=== PATIENT | female | born 1970 | race African-American/Black ===

== ENCOUNTER 2021-09-11 18:18 | Inpatient (IN) | payer MEDICAID, OTHER ==
[~2021-09-11] VITALS: Ht 157.5 cm; Wt 74.4 kg
[2021-09-11] MEDS ORDERED: FAMOTIDINE 20MG/2ML VIAL IV STA (18:34)
[2021-09-11] MEDS ORDERED: KETOROLAC 30MG/ML VIAL IV STA (18:34)
[2021-09-11] MEDS ORDERED: ONDANSETRON HCL 4MG/2ML INJ IV STA (18:34)
[2021-09-11] MEDS ORDERED: SODIUM CHLORIDE 0.9% 1,000 ML IV ONE (18:45)
[2021-09-11 19:04] LABS: BASOPHILS % 1.2 % (0.0-2.0); EOSINOPHILS % 1.2 % (0.0-5.0); LYMPHOCYTES % 19.4 % (20.0-50.0); MEAN CORPUSCULAR HEMOGLOBIN 26.8 pg (28.0-32.0); MEAN CORPUSCULAR VOLUME 83.5 fL (81.0-99.0); MEAN PLATELET VOLUME 8.6 fl (7.4-10.4); MONOCYTES % 8.2 % (2.0-8.0); PLATELET 323 x1000/uL (130-400); RED BLOOD CELL COUNT 1.86 mill/uL (4.2-5.4); RED CELL DISTRIBUTION WIDTH 17.2 % (11.6-14.6)
[2021-09-11 19:11] LABS: CHLORIDE 108 mEq/L (98-107); HEMATOCRIT. 15.5 % (36.0-48.0)
[2021-09-11 19:14] LABS: ETHANOL BLOOD < 10 mg/dL
[2021-09-11 19:33] LABS: INR 1.1; PROTHROMBIN TIME 11.8 sec (9.6-11.0)
[2021-09-11] MEDS ORDERED: CALCIUM CHLORIDE 1GM/10ML SYR IV ONE (20:00)
[2021-09-11] MEDS ORDERED: INSULIN REGULAR (HUMULIN R) 300UNITS/3ML VIAL IV ONE (20:00)
[2021-09-11] MEDS ORDERED: ALBUTEROL (0.083%) 2.5MG/3ML NEB HHN ONE (20:00)
[2021-09-11] MEDS ORDERED: SODIUM POLYSTYRENE SULFONATE 15 G/60 ML BOT PO ONE (20:00)
[2021-09-11] MEDS ORDERED: SODIUM BICARBONATE 8.4% 1 MEQ/ML 50ML SYR IV ONE (20:00)
[2021-09-11] MEDS ORDERED: DEXTROSE 50% WATER 50ML SYRINGE IV ONE (20:00)
[2021-09-11] MEDS ORDERED: FUROSEMIDE 100MG/10ML VIAL IV STA (20:00)
[2021-09-11] MEDS: CLONIDINE 0.2MG TABLET PO PRN (22:24)
[2021-09-12 04:43] LABS: CLARITY URINE TURBID (CLEAR); COLOR URINE YELLOW (YELLOW); KETONES URINE TRACE (NEGATIVE); LEUKOCYTE ESTERASE URINE TRACE (NEGATIVE); NITRITE URINE NEGATIVE (NEGATIVE); OCCULT BLOOD URINE 2+ (NEGATIVE); PROTEIN URINE 3+ (NEGATIVE); SPECIFIC GRAVITY URINE 1.019 (1.005-1.030); UROBILINOGEN URINE 0.2 E.U./dL (0.2-1.0)
[2021-09-12 05:10] LABS: *AMPHETAMINES SCREEN URINE NEGATIVE (NEGATIVE); *BARBITURATES SCREEN URINE NEGATIVE (NEGATIVE); *BENZODIAZEPINES SCREEN URINE NEGATIVE (NEGATIVE); *COCAINE SCREEN URINE NEGATIVE (NEGATIVE); METHADONE URINE SCREEN NEGATIVE (NEGATIVE); OPIATES URINE SCREEN NEGATIVE (NEGATIVE)
[2021-09-12 05:11] LABS: CANNABINOID URINE SCREEN NEGATIVE (NEGATIVE); PHENCYCLIDINE URINE SCREEN NEGATIVE (NEGATIVE)
[2021-09-12 05:33] LABS: BASOPHILS % 0.7 % (0.0-2.0); EOSINOPHILS % 0.5 % (0.0-5.0); HEMATOCRIT. 24.8 % (36.0-48.0); HEMOGLOBIN. 8.4 g/dL (12.0-16.0); LYMPHOCYTES % 17.3 % (20.0-50.0); MEAN CORPUSCULAR HEMOGLOBIN 28.8 pg (28.0-32.0); MEAN CORPUSCULAR VOLUME 85.8 fL (81.0-99.0); MEAN PLATELET VOLUME 8.3 fl (7.4-10.4); MONOCYTES % 12.5 % (2.0-8.0); PLATELET 196 x1000/uL (130-400); RED CELL DISTRIBUTION WIDTH 15.2 % (11.6-14.6)
[2021-09-12] MEDS: CLONIDINE 0.2MG TABLET PO PRN (08:03)
[2021-09-12] MEDS ORDERED: ACETAMINOPHEN 325MG TABLET PO PRN (08:45)
[2021-09-12] MEDS ORDERED: ONDANSETRON HCL 4MG/2ML INJ IV PRN ×2 (08:45)
[2021-09-12] MEDS: HYDRALAZINE HCL 100MG TABLET PO SCH (09:00)
[2021-09-12] MEDS: NIFEDIPINE XL 60MG TAB PO SCH (09:00)
[2021-09-12 10:30] VITALS: BP 125/66
[2021-09-12 12:00] VITALS: BP 131/64
[2021-09-12] MEDS: SODIUM POLYSTYRENE SULFONATE 15 G/60 ML BOT PO SCH ×2 (13:28→13:45)
[2021-09-12] MEDS ORDERED: SODIUM CHLORIDE 0.45% 1,000 ML IV SCH (13:30)
[2021-09-12 15:47] LABS: FOLIC ACID (FOLATE) SERUM 11.3 ng/mL (>5.38)
[2021-09-12 16:00] VITALS: BP 121/68
[2021-09-13] VITALS (36 sets, daily range): BP systolic 84–184; BP diastolic 42–103
[2021-09-13] MEDS ORDERED: LORAZEPAM 2MG/ML CPJ IV SCH (01:15)
[2021-09-13] MEDS: HYDRALAZINE HCL 100MG TABLET PO SCH ×3 (01:44→21:00)
[2021-09-13] MEDS: CLONIDINE 0.2MG TABLET PO PRN (01:58)
[2021-09-13] MEDS ORDERED: OMEPRAZOLE 20MG CAPSULE EXTENDED RELEASE PO SCH (06:30)
[2021-09-13] MEDS: DEXT 5%/0.9% NACL 1,000 ML IV SCH ×3 (06:56→21:08)
[2021-09-13] MEDS: PANTOPRAZOLE 80 MG in SODIUM CHLORIDE 0.9% 100 ML IV SCH ×2 (06:56→16:00)
[2021-09-13 07:13] LABS: BASOPHILS % 0.4 % (0.0-2.0); EOSINOPHILS % 0.2 % (0.0-5.0); LYMPHOCYTES % 15.2 % (20.0-50.0); MEAN CORPUSCULAR HEMOGLOBIN 28.9 pg (28.0-32.0); MEAN CORPUSCULAR VOLUME 87.5 fL (81.0-99.0); MEAN PLATELET VOLUME 8.5 fl (7.4-10.4); MONOCYTES % 9.7 % (2.0-8.0); NEUTROPHILS % 74.5 % (40.0-76.0); PLATELET 240 x1000/uL (130-400); RED BLOOD CELL COUNT 1.73 mill/uL (4.2-5.4); RED CELL DISTRIBUTION WIDTH 15.7 % (11.6-14.6)
[2021-09-13 07:16] LABS: HEMATOCRIT. 15.2 % (36.0-48.0)
[2021-09-13] MEDS: NIFEDIPINE XL 60MG TAB PO SCH (09:00)
[2021-09-13] MEDS ORDERED: CALCIUM GLUCONATE 100MG/ML 10ML VIAL IV STA (09:24)
[2021-09-13 09:50] LABS: BG BASE EXCESS -5.6 mmol/L (-2.0-2.0); BG CARBOXYHEMOGLOBIN 0.3 % (0.5-1.5); BG DEOXYHEMOGLOBIN 3.1 % (0.0-5.0); BG FRACTION INSPIRED OXYGEN 21; BG HCO3 ACT 18.9 mmol/L (22.0-26.0); BG METHEMOGLOBIN 0.8 % (0.0-1.5); BG OXYGEN SATURATION 96.9 % (92.0-98.5); BG OXYHEMOGLOBIN 95.8 % (94.0-97.0); BG PCO2 31.6 mmHg (35.0-45.0); BG PH 7.394 (7.350-7.450); BG PO2 103.9 mmHg (75.0-100.0); BG SAMPLE SITE RIGHT RADIAL; BG TOTAL HEMOGLOBIN 4.7 g/dL (12.0-18.0); BG VENT MODE ROOM AIR
[2021-09-13] MEDS ORDERED: SODIUM BICARBONATE 8.4% 1 MEQ/ML 50ML SYR IV SCH (10:00)
[2021-09-13] MEDS ORDERED: SODIUM POLYSTYRENE SULFONATE 15 G/60 ML BOT PO SCH (10:00)
[2021-09-13] MEDS ORDERED: DEXTROSE 50% WATER 50ML SYRINGE IV SCH (11:00)
[2021-09-13] MEDS ORDERED: CALCIUM GLUCONATE 1GM PREMIX 50 ML IV SCH (11:00)
[2021-09-13] MEDS ORDERED: INSULIN REGULAR (HUMULIN R) UD 100 UNITS/ML SYR IV SCH (11:00)
[2021-09-13] MEDS ORDERED: HEPARIN 1000 UNITS/ML 10ML ONE (11:23)
[2021-09-13 13:21] LABS: HEPATITIS B SURFACE ANTIGEN NEGATIVE
[2021-09-13] MEDS: PIPERACILLIN/TAZOBACTAM 3.375 G in DEXTROSE 5% WATER 50 ML IV SCH (18:00)
[2021-09-13 20:50] LABS: TOTAL IRON BINDING CAPACITY 166 ug/dL (250-450)
[2021-09-14] VITALS (84 sets, daily range): BP systolic 72–180; BP diastolic 33–126
[2021-09-14] MEDS: PANTOPRAZOLE 80 MG in SODIUM CHLORIDE 0.9% 100 ML IV SCH (01:32)
[2021-09-14 02:39] LABS: HEMATOCRIT 27.9 % (36.0-48.0); HEMOGLOBIN 9.1 g/dL (12.0-16.0)
[2021-09-14] MEDS: DEXT 5%/0.9% NACL 1,000 ML IV SCH ×3 (05:55→20:17)
[2021-09-14] MEDS: PIPERACILLIN/TAZOBACTAM 3.375 G in DEXTROSE 5% WATER 50 ML IV SCH ×3 (06:00→21:30)
[2021-09-14 06:11] LABS: HEMATOCRIT. 27.5 % (36.0-48.0); HEMOGLOBIN. 9.1 g/dL (12.0-16.0); MEAN CORPUSCULAR HEMOGLOBIN 28.5 pg (28.0-32.0); MEAN CORPUSCULAR VOLUME 86.8 fL (81.0-99.0); MEAN PLATELET VOLUME 8.7 fl (7.4-10.4); PLATELET 110 x1000/uL (130-400); RED BLOOD CELL COUNT 3.17 mill/uL (4.2-5.4); RED CELL DISTRIBUTION WIDTH 16.6 % (11.6-14.6)
[2021-09-14] MEDS: HYDRALAZINE HCL 100MG TABLET PO SCH ×2 (08:35→21:30)
[2021-09-14] MEDS: NIFEDIPINE XL 60MG TAB PO SCH (08:37)
[2021-09-14 09:39] LABS: NUCLEATED RED BLOOD CELLS 3 /100 WBC
[2021-09-14 09:40] LABS: PLATELET ESTIMATE SLIGHTLY DECREASED
[2021-09-14] MEDS ORDERED: PHENYLEPHRINE 100 MG in DEXT 5% WATER 240 ML IV PRN (12:15)
[2021-09-14] MEDS: PANTOPRAZOLE SODIUM 40 MG/VIAL IV SCH ×2 (12:28→21:30)
[2021-09-14 12:54] LABS: HEMATOCRIT 22.2 % (36.0-48.0); HEMOGLOBIN 7.3 g/dL (12.0-16.0)
[2021-09-14 13:50] LABS: BG BASE EXCESS -1.6 mmol/L (-2.0-2.0); BG CARBOXYHEMOGLOBIN 0.3 % (0.5-1.5); BG DEOXYHEMOGLOBIN 4.2 % (0.0-5.0); BG FRACTION INSPIRED OXYGEN 21; BG HCO3 ACT 22.1 mmol/L (22.0-26.0); BG METHEMOGLOBIN 0.1 % (0.0-1.5); BG OXYGEN SATURATION 95.8 % (92.0-98.5); BG OXYHEMOGLOBIN 95.4 % (94.0-97.0); BG PCO2 32.5 mmHg (35.0-45.0); BG PO2 81.2 mmHg (75.0-100.0); BG SAMPLE SITE RIGHT RADIAL; BG TOTAL HEMOGLOBIN 7.5 g/dL (12.0-18.0); BG VENT MODE ROOM AIR
[2021-09-14] MEDS: VANCOMYCIN 1000MG/20ML ORAL SOLN PO SCH (17:51)
[2021-09-14] MEDS ORDERED: VANCOMYCIN HCL 1 GM/VIAL IV SCH (18:00)
[2021-09-14 18:02] LABS: HEMATOCRIT 31.8 % (36.0-48.0); HEMOGLOBIN 10.4 g/dL (12.0-16.0)
[2021-09-15] VITALS (59 sets, daily range): BP systolic 95–174; BP diastolic 57–94
[2021-09-15 00:11] LABS: HEMATOCRIT 25.7 % (36.0-48.0); HEMOGLOBIN 8.4 g/dL (12.0-16.0)
[2021-09-15] MEDS: VANCOMYCIN 1000MG/20ML ORAL SOLN PO SCH ×4 (00:28→17:02)
[2021-09-15] MEDS: DEXT 5%/0.9% NACL 1,000 ML IV SCH ×3 (04:06→16:58)
[2021-09-15] MEDS: PIPERACILLIN/TAZOBACTAM 3.375 G in DEXTROSE 5% WATER 50 ML IV SCH ×3 (05:51→23:50)
[2021-09-15 06:19] LABS: HEMATOCRIT. 28.3 % (36.0-48.0); HEMOGLOBIN. 9.2 g/dL (12.0-16.0); MEAN CORPUSCULAR HEMOGLOBIN 28.1 pg (28.0-32.0); MEAN CORPUSCULAR VOLUME 86.3 fL (81.0-99.0); MEAN PLATELET VOLUME 8.9 fl (7.4-10.4); PLATELET 120 x1000/uL (130-400); RED BLOOD CELL COUNT 3.28 mill/uL (4.2-5.4); RED CELL DISTRIBUTION WIDTH 15.7 % (11.6-14.6)
[2021-09-15 06:53] LABS: CHLORIDE 117 mEq/L (98-107)
[2021-09-15 07:49] LABS: NUCLEATED RED BLOOD CELLS 1 /100 WBC
[2021-09-15 07:50] LABS: PLATELET ESTIMATE SLIGHTLY DECREASED
[2021-09-15] MEDS ORDERED: METHYLPREDNISOLONE SOD SUCC 40 MG/ML VIAL IV SCH (10:00)
[2021-09-15] MEDS ORDERED: FUROSEMIDE 40MG/4ML VIAL IVP SCH (10:00)
[2021-09-15] MEDS: HYDRALAZINE HCL 100MG TABLET PO SCH ×2 (10:07→21:00)
[2021-09-15] MEDS: PANTOPRAZOLE SODIUM 40 MG/VIAL IV SCH ×2 (10:07→23:51)
[2021-09-15] MEDS: NIFEDIPINE XL 60MG TAB PO SCH (10:08)
[2021-09-15] MEDS ORDERED: DEXTROSE 50% WATER 50ML SYRINGE IV PRN (11:45)
[2021-09-15] MEDS: BLOOD SUGAR DIAGNOSTIC STRIP TEST SCH ×2 (11:51→17:02)
[2021-09-15] MEDS: INSULIN LISPRO 100 UNITS/ML SUBCUT SCH ×2 (11:58→17:05)
[2021-09-15 12:28] LABS: HEMATOCRIT 26.8 % (36.0-48.0); HEMOGLOBIN 8.8 g/dL (12.0-16.0)
[2021-09-15 20:23] LABS: HEMATOCRIT 25.9 % (36.0-48.0); HEMOGLOBIN 8.6 g/dL (12.0-16.0)
[2021-09-16] VITALS (27 sets, daily range): BP systolic 102–158; BP diastolic 42–94
[2021-09-16 01:23] LABS: HEMATOCRIT 28.6 % (36.0-48.0); HEMOGLOBIN 9.6 g/dL (12.0-16.0)
[2021-09-16 05:22] LABS: HEMATOCRIT. 25.5 % (36.0-48.0); HEMOGLOBIN. 8.7 g/dL (12.0-16.0); MEAN CORPUSCULAR HEMOGLOBIN 29.2 pg (28.0-32.0); MEAN CORPUSCULAR VOLUME 85.3 fL (81.0-99.0); MEAN PLATELET VOLUME 8.5 fl (7.4-10.4); PLATELET 129 x1000/uL (130-400); RED BLOOD CELL COUNT 2.99 mill/uL (4.2-5.4); RED CELL DISTRIBUTION WIDTH 15.7 % (11.6-14.6)
[2021-09-16] MEDS: PIPERACILLIN/TAZOBACTAM 3.375 G in DEXTROSE 5% WATER 50 ML IV SCH ×2 (05:33→13:56)
[2021-09-16] MEDS: VANCOMYCIN 1000MG/20ML ORAL SOLN PO SCH ×4 (05:36→17:49)
[2021-09-16 06:25] LABS: BG BASE EXCESS -2.5 mmol/L (-2.0-2.0); BG CARBOXYHEMOGLOBIN 0.2 % (0.5-1.5); BG DEOXYHEMOGLOBIN 4.9 % (0.0-5.0); BG HCO3 ACT 21.8 mmol/L (22.0-26.0); BG METHEMOGLOBIN 0.3 % (0.0-1.5); BG OXYGEN SATURATION 95.1 % (92.0-98.5); BG OXYHEMOGLOBIN 94.6 % (94.0-97.0); BG PCO2 35.4 mmHg (35.0-45.0); BG PH 7.407 (7.350-7.450); BG PO2 75.7 mmHg (75.0-100.0); BG SAMPLE SITE RIGHT RADIAL; BG TOTAL HEMOGLOBIN 9.3 g/dL (12.0-18.0); BG VENT MODE ROOM AIR
[2021-09-16 07:18] LABS: NUCLEATED RED BLOOD CELLS 3 /100 WBC
[2021-09-16 07:19] LABS: PLATELET ESTIMATE NORMAL
[2021-09-16] MEDS: FOLIC ACID/VITAMIN B COMP W-C TABLET PO SCH (09:01)
[2021-09-16] MEDS: PANTOPRAZOLE SODIUM 40 MG/VIAL IV SCH (09:01)
[2021-09-16] MEDS: NIFEDIPINE XL 60MG TAB PO SCH (09:02)
[2021-09-16] MEDS: DEXTROSE 5% WATER 1,000 ML IV SCH (09:02)
[2021-09-16] MEDS: HYDRALAZINE HCL 100MG TABLET PO SCH (09:02)
[2021-09-16] MEDS: INSULIN LISPRO 100 UNITS/ML SUBCUT SCH ×3 (12:00→18:02)
[2021-09-16] MEDS: BLOOD SUGAR DIAGNOSTIC STRIP TEST SCH ×3 (12:01→17:41)
[2021-09-16 13:08] LABS: HEMATOCRIT 25.5 % (36.0-48.0); HEMOGLOBIN 8.3 g/dL (12.0-16.0)
[2021-09-16 19:40] LABS: HEMATOCRIT 27.5 % (36.0-48.0)
[2021-09-17] VITALS (29 sets, daily range): BP systolic 91–213; BP diastolic 55–106
[2021-09-17] MEDS: PIPERACILLIN/TAZOBACTAM 3.375 G in DEXTROSE 5% WATER 50 ML IV SCH ×4 (01:48→22:00)
[2021-09-17] MEDS: PANTOPRAZOLE SODIUM 40 MG/VIAL IV SCH ×3 (01:49→21:00)
[2021-09-17] MEDS: HYDRALAZINE HCL 100MG TABLET PO SCH ×3 (01:49→21:00)
[2021-09-17] MEDS: DEXTROSE 5% WATER 1,000 ML IV SCH (01:50)
[2021-09-17 01:52] LABS: HEMATOCRIT 27.5 % (36.0-48.0); HEMOGLOBIN 9.3 g/dL (12.0-16.0)
[2021-09-17 04:10] LABS: OVA & PARASITE EXAM Final report (.)
[2021-09-17] MEDS: INSULIN LISPRO 100 UNITS/ML SUBCUT SCH ×4 (06:00→18:04)
[2021-09-17] MEDS: VANCOMYCIN 1000MG/20ML ORAL SOLN PO SCH ×4 (06:00→18:03)
[2021-09-17] MEDS: BLOOD SUGAR DIAGNOSTIC STRIP TEST SCH ×4 (06:00→17:17)
[2021-09-17 06:29] LABS: HEMATOCRIT. 26.7 % (36.0-48.0); HEMOGLOBIN. 9.1 g/dL (12.0-16.0); MEAN CORPUSCULAR HEMOGLOBIN 29.2 pg (28.0-32.0); MEAN CORPUSCULAR VOLUME 85.3 fL (81.0-99.0); MEAN PLATELET VOLUME 8.7 fl (7.4-10.4); PLATELET 182 x1000/uL (130-400); RED BLOOD CELL COUNT 3.13 mill/uL (4.2-5.4); RED CELL DISTRIBUTION WIDTH 15.4 % (11.6-14.6)
[2021-09-17 06:43] LABS: CHLORIDE 113 mEq/L (98-107)
[2021-09-17 08:05] LABS: PLATELET ESTIMATE NORMAL
[2021-09-17] MEDS: FOLIC ACID/VITAMIN B COMP W-C TABLET PO SCH (08:17)
[2021-09-17] MEDS: NIFEDIPINE XL 60MG TAB PO SCH (08:18)
[2021-09-17] MEDS: CLONIDINE 0.2MG TABLET PO PRN (08:18)
[2021-09-17 13:13] LABS: HEMATOCRIT 30.4 % (36.0-48.0)
[2021-09-18] VITALS (72 sets, daily range): BP systolic 63–144; BP diastolic 28–98
[2021-09-18] MEDS: INSULIN LISPRO 100 UNITS/ML SUBCUT SCH ×4 (06:00→17:23)
[2021-09-18] MEDS: PIPERACILLIN/TAZOBACTAM 3.375 G in DEXTROSE 5% WATER 50 ML IV SCH ×2 (06:00→14:32)
[2021-09-18] MEDS: BLOOD SUGAR DIAGNOSTIC STRIP TEST SCH ×4 (06:00→17:23)
[2021-09-18] MEDS: VANCOMYCIN 1000MG/20ML ORAL SOLN PO SCH ×4 (06:00→18:00)
[2021-09-18 06:46] LABS: MEAN CORPUSCULAR HEMOGLOBIN 28.7 pg (28.0-32.0); MEAN CORPUSCULAR VOLUME 86.2 fL (81.0-99.0); MEAN PLATELET VOLUME 9.5 fl (7.4-10.4); PLATELET 178 x1000/uL (130-400); RED BLOOD CELL COUNT 1.81 mill/uL (4.2-5.4); RED CELL DISTRIBUTION WIDTH 15.7 % (11.6-14.6)
[2021-09-18 06:57] LABS: HEMOGLOBIN. 5.2 g/dL (12.0-16.0)
[2021-09-18 06:58] LABS: HEMATOCRIT. 15.6 % (36.0-48.0)
[2021-09-18] MEDS: NIFEDIPINE XL 60MG TAB PO SCH (08:28)
[2021-09-18] MEDS: HYDRALAZINE HCL 100MG TABLET PO SCH (08:28)
[2021-09-18] MEDS ORDERED: SODIUM CHLORIDE 0.9% 1,000 ML IV SCH (08:30)
[2021-09-18] MEDS: PANTOPRAZOLE SODIUM 40 MG/VIAL IV SCH (08:49)
[2021-09-18] MEDS: FOLIC ACID/VITAMIN B COMP W-C TABLET PO SCH (08:49)
[2021-09-18 11:39] LABS: PLATELET ESTIMATE NORMAL
[2021-09-18] MEDS ORDERED: DEXT 5%/0.9% NACL 1,000 ML IV SCH (12:15)
[2021-09-18] MEDS ORDERED: MORPHINE SULFATE 2 MG/ML CPJ (NOT FOR IM USE) IV PRN (15:00)
[2021-09-18] MEDS ORDERED: NALOXONE HCL 0.4MG/ML VIAL IV PRN (16:45)
[2021-09-18] MEDS ORDERED: MORPHINE SULFATE 250 MG in DEXT 5% WATER 225 ML IV SCH (20:15)
[2021-09-18] MEDS ORDERED: MORPHINE (DRIP)100 MG in DEXT 5% WATER 100 ML IV SCH (21:00)
[2021-09-19 02:00] VITALS: BP 64/35
[2021-09-19 03:00] VITALS: BP 58/36
[2021-09-19 04:00] VITALS: BP 53/31
== END 2021-09-19 09:02 | DRG 720 ==
LOC: ER 18:18 → MICUSO 20:01 → EDBEDREQ 20:17 → 8WST 09-12 10:20 → CVICU 09-13 06:31
PROVIDERS: ADMIT Internal Medicine; ATTEND Internal Medicine
PROC: 30233N1 Transfusion of Nonautologous Red Blood Cells into Peripheral Vein, Percutaneous Approach (ICD-10-PCS; principal; 2021-09-11)
PROC: 5A1D70Z Performance of Urinary Filtration, Intermittent, Less than 6 Hours Per Day (ICD-10-PCS; 2021-09-13)
PROC: 02HV33Z Insertion of Infusion Device into Superior Vena Cava, Percutaneous Approach (ICD-10-PCS; 2021-09-13)
PROC: B548ZZA Ultrasonography of Superior Vena Cava, Guidance (ICD-10-PCS; 2021-09-13)
PROC: 02HV33Z Insertion of Infusion Device into Superior Vena Cava, Percutaneous Approach (ICD-10-PCS; 2021-09-13)
PROC: B548ZZA Ultrasonography of Superior Vena Cava, Guidance (ICD-10-PCS; 2021-09-13)
PROC: 4A10X4Z Monitoring of Central Nervous Electrical Activity, External Approach (ICD-10-PCS; 2021-09-15)
PROC: 5A1D70Z Performance of Urinary Filtration, Intermittent, Less than 6 Hours Per Day (ICD-10-PCS; 2021-09-15)
PROC: 5A1D70Z Performance of Urinary Filtration, Intermittent, Less than 6 Hours Per Day (ICD-10-PCS; 2021-09-16)
DX: A41.9 Sepsis, unspecified organism (principal); N17.0 Acute kidney failure with tubular necrosis; I63.9 Cerebral infarction, unspecified; J69.0 Pneumonitis due to inhalation of food and vomit; G93.49 Other encephalopathy; E43 Unspecified severe protein-calorie malnutrition; K92.2 Gastrointestinal hemorrhage, unspecified; Z66 Do not resuscitate; D50.0 Iron deficiency anemia secondary to blood loss (chronic); R74.01 Elevation of levels of liver transaminase levels; E87.5 Hyperkalemia; I16.0 Hypertensive urgency; N39.0 Urinary tract infection, site not specified; E83.51 Hypocalcemia; B96.89 Other specified bacterial agents as the cause of diseases classified elsewhere; I12.9 Hypertensive chronic kidney disease with stage 1 through stage 4 chronic kidney disease, or unspecified chronic kidney disease; Z20.822 Contact with and (suspected) exposure to COVID-19; N18.9 Chronic kidney disease, unspecified; I31.3 Pericardial effusion (noninflammatory); J90 Pleural effusion, not elsewhere classified; Z68.30 Body mass index [BMI] 30.0-30.9, adult; R60.1 Generalized edema; E11.9 Type 2 diabetes mellitus without complications
CPT/HCPCS: 36415; 36556; 36600; 70551; 71045; 74176; 76700; 76937; 80048; 80053; 80076; 80305; 80320; 81003; 82140; 82270; 82375; 82607; 82728; 82746; 82805; 82962; 83036; 83540; 83550; 84132; 85014; 85018; 85025; 85044; 86705; 86709; 86803; 86850; 86900; 86920; 87015; 87045; 87177; 87209; 87340; 87426; 87427; 87449; 87493; 93005; 93306; 95816; 97162; 97166; 99285; C1725; C1752; C9113; J0610; J1644; J1815; J1885; J1940; J2060; J2270; J2370; J2405; J2543; J2920; J3370; J3490; J7030; J7042; J7050; J7060; J7070; P9016; G0480